=== PATIENT | male | born 1995 | race Caucasian/White ===

== ENCOUNTER 2020-10-01 14:29 | Emergency (ER) | payer MEDICAID, SELFPAY | END 2020-10-01 17:40 | disposition left against medical advice (07) | LOC: HO.ED 17:09 | PROVIDERS: Emergency Provider Emergency Medicine | DX: M79.643 Pain in unspecified hand (principal) ==

== ENCOUNTER 2022-02-18 14:02 | Emergency (ER) | payer MEDICAID, SELFPAY ==
[2022-02-18 14:09] VITALS: BP 128/86; PULSE 70; O2SAT 99
--- NOTE | 2022-02-18 19:22 | PC.NURSE ---
Called for triage, pt not in waiting room.
== END 2022-02-18 19:43 | disposition left against medical advice (07) ==
LOC: HO.ED 19:35
PROVIDERS: Emergency Provider Emergency Medicine
DX: R11.10 Vomiting, unspecified (principal)

== ENCOUNTER 2024-07-22 09:43 | Emergency (ER) | payer SELFPAY ==
[2024-07-22 09:52] VITALS: BP 112/71; PULSE 80; RESP 18; TEMP 36.7; O2SAT 98; BMI 29.1
--- NOTE | 2024-07-22 12:03 | ED.DENTAL ---
HPI - Dental/Oral General Chief complaint: Dental/Oral Stated complaint: Dental Infection Time Seen by Provider: 07/22/24 11:58 Source: patient and RN notes reviewed Mode of arrival: ambulatory Limitations: no limitations History of Present Illness ED Provider: Jamee Ambriz PA-C HPI Narrative: This is a 29-year-old male, with no known medical problems, who presents emergency department with complaints of right upper dental pain which started 3 days ago. Patient states that he awoke this morning and noticed that he had facial swelling. He also reports that the pain radiates into his right ear and right side of his face. He has been taking [id number] Tylenol and Motrin for her symptoms which provided him with some relief. He does have a dentist who he can follow-up with. Denies any fevers or chills. No difficulty swallowing or breathing. No chest pain. No other complaints or concerns at this time. MD Complaint: tooth pain Location: Tooth # (5,6,7) Onset (ago): day(s) Duration: constant Severity: moderate Relieving factors: NSAIDs Exacerbating factors: chewing, cold, heat and drinking fluids Context: history of dental caries and poor dental care Associated symptoms: ear pain Treatment prior to arrival: none Related Data Previous Rx's ?Medication ?Instructions ?Recorded acetaminophen 500 mg tablet 1,000 mg (2 x 500 mg) PO Q8H PRN 07/22/24 (Tylenol Extra Strength) pain #30 tabs amoxicillin 875 mg-potassium 1 tab PO BID 7 days #14 tabs 07/22/24 clavulanate 125 mg tablet ibuprofen 600 mg tablet 600 mg PO Q6H PRN pain #30 tabs 07/22/24 Allergies Allergy/AdvReac Type Severity Reaction Status Date / Time No Known Allergies Allergy Verified 07/22/24 09:54 Review of Systems Review of Systems: Yes all other systems are reviewed and are negative Constitutional: Constitutional: Reports as per [facility] Social History Social History Do you have a plan to hurt others: No Plan Physical Exam Vital Signs: Vital Signs: Last Vital Signs Temp 98.1 F 07/22/24 09:52 Pulse 80 07/22/24 09:52 Resp 18 07/22/24 09:52 BP 112/71 07/22/24 09:52 Pulse Ox 98 07/22/24 09:52 O2 Del Method Room Air 05/30/25 09:52 BMI result Body Mass Index 29.1 Const: General: cooperative, comfortable and no acute distress Orientation/consciousness: patient oriented x3 Limitations: no limitations HEENT: Other: Poor dentition throughout, tooth number 5 6 and 7 in for repair, no surrounding gingival erythema, edema, or fluctuance. No trismus, drooling, or dysphonia. Speaking full sentences. Mild right-sided facial swelling, no mandibular pain, no lymphadenopathy appreciated. Right TM is nonerythematous, nonedematous. Left TM unremarkable. Head: Yes normal to inspection, Yes normocephalic and Yes atraumatic Ears: hearing grossly normal bilaterally General nose exam: Normal external nose present Face and sinus: Yes normal facial exam Mouth: Normal oral and palatal mucosa present, oropharynx normal and moist mucous membranes Throat: Yes posterior oropharynx normal Eyes: General: appearance normal, both eyes and all related structures Eyelids: Yes eyelids normal Conjunctivae: conjunctivae normal Sclerae: sclerae normal Pupils: Equal, round and reactive pupils present EOM: EOMs intact bilaterally Neck: Neck: Yes normal visual inspection, Yes full ROM and Yes no lymphadenopathy Lymphatic: no lymphadenopathy noted Chest: Chest palpation & inspection: normal inspection of the chest Resp: Effort & Inspection: normal respiratory effort and able to speak in complete sentences Auscultation: clear to auscultation bilaterally, no crackles, no rales, no rhonchi and no wheezes Cardio: Rate: regular rate Rhythm: regular rhythm Heart sounds: S1 normal heart sound present and S2 normal heart sound present GI: Inspection: Yes normal to inspection Skin: General skin exam: no rashes or lesions noted Trauma: no lacerations or abrasions Wounds: no wounds Neuro: General: patient oriented x3 and moves all extremities Cranial nerves: Yes Equal, round and reactive pupils present Extrem: General: Yes normal to inspection Right upper extremity: normal to inspection Left upper extremity: normal to inspection Right lower extremity: normal to inspection Left lower extremity: normal to inspection Medical Decision Making Medical Decision Making MDM Narrative: This is a 29-year-old male, with no known medical problems, who presents emergency department with complaints of right upper dental pain for the last 3 days. On arrival, vital signs within normal limits. He is speaking full sentences under no acute distress. Tooth 5, 6, 7 are in poor repair. He is speaking full sentences under no acute distress. No significant right-sided facial swelling, no evidence of dental abscess on examination. Differential diagnoses include dental fracture, dental decay, dental abscess, facial pain. Patient with obvious dental decay, with no evidence of dental abscess. Will treat with antibiotics, ibuprofen and Tylenol. Given strict return precautions. He understands agrees with plan. Patient stable for discharge. Stressed the importance of following up with a dentist. He understands. Patient stable for discharge. Differential Diagnosis Differential Diagnoses: The differential diagnosis associated with the presentation includes See above Discharge Plan Discharge Clinical Impression: Toothache Patient Disposition: Home, Self-Care Instructions: Toothache (ED) Additional Instructions: You were seen in the emergency department due to dental pain. You have a dental infection therefore we are starting you on antibiotics. Please take full course of antibiotics even if your symptoms improve. You need to follow-up with dentist as this is only a temporary fix, and not a solution. Alternate between ibuprofen and Tylenol as needed for pain and symptoms. Take ibuprofen 600 mg every 6 hours, 2 hours later, you can take Tylenol 1000 mg (take this every 8 hours). Alternating between these 2 medications can help with your symptoms. If any new or worsening symptoms occur including but not limited to inability to swallow, shortness for breath, inability to open and close your jaw, please seek emergent care. Prescriptions: New ibuprofen 600 mg tablet 600 mg PO Q6H PRN (Reason: pain) Qty: 30 0RF acetaminophen [Tylenol Extra Strength] 500 mg tablet 1,000 mg PO Q8H PRN (Reason: pain) Qty: 30 0RF amoxicillin-pot clavulanate 875-125 mg tablet 1 tab PO BID 7 Days Qty: 14 0RF Stand Alone Forms: Work/School Release Print Language: Thai
[2024-07-22 12:12] VITALS: BP 112/71; PULSE 80; RESP 18; TEMP 36.7; O2SAT 98
--- OUTSIDE RECORDS SUMMARY | 2024-07-22 12:46 | XMS_ITS | Clinical Summary ---
Author Organization [facility] Address [address] [place] [address] Care Team Providers Care Microbiology Instructor Name Role Phone Unavailable Primary Care Provider Unavailabl e Encounters Date Type Department Care Team Description 05/06/2024 Population Health Risk Score [facility] ([facility]) Department [address] [facility] [address] [place] [id number] Provider, Population Health Generic from Last 3 Months Social History Tobacco Use Types Packs/Day Years Used Date Smoking Tobacco: Never Assessed Sex and Gender Information Value Date Recorded Sex Assigned at Not on file Legal Sex Male 1:45 PM EST Gender Identity Not on file Sexual Orientation Not on file Plan of Treatment Health Maintenance Due Date Last Done Comments Depression Screening 1993 HIV Screening 1993 SDOH Screening 1993 Disability Screening 1993 Alcohol/Substance Use Screening 2005 Tobacco Screening 2005 Family Planning (PISQ) 2008 Hepatitis C Screening 07/12/2011 DTaP/Tdap/Td Vaccines (1 - Tdap) 2012 Hepatitis B Vaccines (1 of 3 - 19+ 3-dose series) 2012 COVID-19 Vaccine ( - 2023-2 5 season) 2023 Influenza Vaccine (#1) 2023 Zoster Vaccines (1 of 2) 07/12/2043 RSV Patients and Pa tients Aged 60 years or older (1 - 1-dose 75+ series) 2068 HIB Vaccines Aged Out No longer eligi ble based on patient's age to complete this topic HPV Vaccines Aged Out No longer eligi ble based on patient's age to complete this topic Hepatitis A Vaccines Aged Out No long er eligible based on patient's age to complete this topic IPV Vaccines Aged Out No longer eligi ble based on patient's age to complete this topic Meningococcal B Vaccine Aged Out No l onger eligible based on patient's age to complete this topic Meningococcal Vaccine Aged Out No kar toshia eligible based on patient's age to complete this topic Pneumococcal Vaccine: Pediat rics (0 to 5 Years) and At-Risk Patients (6 to 49) Years) Aged Out No longer eligible b ased on patient's age to complete this topic RSV under 20 months Aged Out No longe r eligible based on patient's age to complete this topic Rotavirus Vaccines Aged Out No longer eligible based on patient's age to complete this topic
== END 2024-07-22 12:12 | disposition home or self-care (01) ==
PROVIDERS: Emergency Provider Emergency Medicine Emergency Medical Services
DX: K08.89 Other specified disorders of teeth and supporting structures (principal)
CPT/HCPCS: 99282; 99283